=== PATIENT | female | born 1995 | race Caucasian/White ===

== ENCOUNTER 2018-01-18 16:31 | Emergency (ER) | payer OTHER ==
[~2018-01-18] VITALS: Ht 157.5 cm; Wt 59.0 kg
== END 2018-01-18 22:17 | disposition home or self-care (01) ==
LOC: ER 16:31
DX: K29.60 Other gastritis without bleeding (principal); R10.13 Epigastric pain

== ENCOUNTER 2019-10-18 18:40 | Emergency (ER) | payer OTHER ==
[~2019-10-18] VITALS: Ht 160 cm; Wt 56.7 kg
[~2019-10-18 18:40] MED LIST: TUSSI PRES-B L480 ML PO; ZITHROMAX500 MG PO
== END 2019-10-18 20:40 | disposition home or self-care (01) ==
LOC: ER 18:40
DX: M62.830 Muscle spasm of back (principal)

== ENCOUNTER 2020-09-18 12:45 | Emergency (ER) | payer OTHER ==
[~2020-09-18] VITALS: Ht 157.5 cm; Wt 59.0 kg
[2020-09-18] MEDS ORDERED: ZOLOFT50 MG (13:40)
[2020-09-18] MEDS ORDERED: TAMS0.4C PO (21:02)
[2020-09-18] MEDS ORDERED: KETO10TA2 PO (21:02)
== END 2020-09-18 21:28 | disposition home or self-care (01) ==
LOC: ER 12:45
DX: N39.0 Urinary tract infection, site not specified (principal)

== ENCOUNTER 2020-11-04 03:09 | Emergency (ER) | payer OTHER ==
[~2020-11-04] VITALS: Ht 157.5 cm; Wt 59.0 kg
[~2020-11-04 03:09] MED LIST changes: +KETO10TA2 PO; +TAMS0.4C PO; +ZOLOFT50 MG
[2020-11-04] MEDS ORDERED: ZOLOFT50 MG (03:33)
== END 2020-11-04 11:49 | disposition home or self-care (01) ==
LOC: ER 03:09
DX: K52.89 Other specified noninfective gastroenteritis and colitis (principal)